=== PATIENT | female | born 1955 | race Caucasian/White ===

== ENCOUNTER 2019-12-25 13:51 | Emergency (ER) | payer MEDICARE ==
[~2019-12-25 13:51] MED LIST: Crotalidae Polyvalent Antivenin 1 GM VIAL ONE
[2019-12-25] MEDS ORDERED: Ondansetron PF 4 MG/2 ML Vial ONE (14:18)
[2019-12-25] MEDS ORDERED: Morphine 4 MG/ML VIAL ONE (14:18)
[2019-12-25 14:50] LABS: #Basophils 0.1 thou/uL (0.0-0.2); #Eosinphils 0.1 thou/uL (0.0-0.7); #Lymphocytes 3.1 thou/uL (1.20-3.40); #Monocytes 0.5 thou/uL (0.11-0.59); %Basophils 1.3 % (0.0-1.0); %Eosinophils 1.2 % (0.0-10.0); %Lymphocytes 39.5 % (21.0-51.0); %Monocytes 6.8 % (0.0-10.0); %Neutrophils 51.3 % (42.0-75.0); Hemoglobin 15.3 g/dL (12.0-16.0); Mean Corpuscular HGB CONC 31.4 g/dL (32.0-36.0); Mean Corpuscular Hemoglobin 27.9 pg (27.0-31.0); Mean Corpuscular Volume 88.9 fL (78.0-98.0); Mean Platelet Volume 9.9 fL (7.4-10.4); Platelet Count 179 thou/uL (130-400); RBC Distribution Width 12.9 % (11.5-14.5); White Blood Cell (WBC) Count 7.7 thou/uL (4.8-10.8)
[2019-12-25] MEDS ORDERED: Adacel (T-DAP) 0.5 ML SYRINGE ONE (14:52)
[2019-12-25 15:27] LABS: PTT 25.9 SEC (22.9-36.1); Prothrombin Time 12.8 SEC (12.0-14.7)
[2019-12-25 16:28] LABS: Bilirubin Negative (Negative); Blood, Urine Negative (Negative); Clarity Slightly Cloudy (Clear); Glucose, Urine (Dipstick) Negative (Negative); Leukocyte Negative (Negative); Nitrite Negative (Negative); Protein, Urine (Dipstick) 30 mg/dL (Neg-Trace); Urobilinogen 0.2 mg/dL (Less than 2)
[2019-12-25 16:34] LABS: Bacteria/HPF 1+ HPF (None Seen); RBC/HPF 0-3 HPF (0-3); WBC/HPF 0-3 HPF (0-3)
== END 2019-12-25 16:15 | disposition short-term general hospital (02) ==
LOC: MADERS 13:51
DX: T63.061A Toxic effect of venom of other North and South American snake, accidental (unintentional), initial encounter (principal); I10 Essential (primary) hypertension; J44.9 Chronic obstructive pulmonary disease, unspecified; K21.9 Gastro-esophageal reflux disease without esophagitis; F17.210 Nicotine dependence, cigarettes, uncomplicated
CPT/HCPCS: 36415; 81003; 81015; 82550; 85025; 85384; 85610; 85730; 86850; 86900; 86901; 90471; 90715; 93005; 96365; 96375; J0840; J2270; J2405; J7050

== ENCOUNTER 2021-03-26 06:43 | Observation (INO) | payer MEDICARE ==
[2021-03-26] MEDS ORDERED: Ketorolac Tromethamine 30 MG/ML VIAL ONE (08:52)
[2021-03-26] MEDS ORDERED: Morphine 4 MG/ML VIAL ONE (11:15)
[2021-03-26 11:43] LABS: SARS-CoV-2 NAA Rapid Test Not Detected (NotDetected)
[2021-03-26] MEDS ORDERED: Ondansetron ODT 4 MG TAB PO PRN (11:47)
[2021-03-26] MEDS ORDERED: Acetaminophen 325 MG TAB PO PRN (11:47)
[2021-03-26 11:50] VITALS: BMI 40.1
[2021-03-26] MEDS ORDERED: HYDROcodone/Acetaminophen 5/325 mg Tablet PO PRN (13:26)
[2021-03-26] MEDS: Oxybutynin 5 MG TAB PO SCH ×2 (15:05→20:39)
[2021-03-26] MEDS: Morphine 4 MG/ML VIAL SLOW IVP PRN ×2 (15:28→20:39)
[2021-03-26] MEDS ORDERED: Cyclobenzaprine 10 MG TAB PO PRN (15:56)
[2021-03-26] MEDS ORDERED: Albuterol Sulfate 1.25 MG/3 ML NEB NEB PRN (16:47)
[2021-03-26] MEDS: Atorvastatin Calcium 10 MG TAB PO SCH (20:36)
[2021-03-26] MEDS: Meloxicam 7.5 MG TAB PO SCH (20:37)
[2021-03-26] MEDS: Metoprolol Tartrate 25 MG TAB PO SCH (20:38)
[2021-03-26] MEDS: Mometasone/Formoterol 200/5 60 PUFF INH SCH (20:38)
[2021-03-26] MEDS: Nicotine 21 MG PATCH TOP SCH (20:39)
[2021-03-27] MEDS: Morphine 4 MG/ML VIAL SLOW IVP PRN (04:58)
[2021-03-27] MEDS: Hydrochlorothiazide 25 MG TAB PO SCH (09:15)
[2021-03-27] MEDS: Oxybutynin 5 MG TAB PO SCH ×3 (09:15→20:33)
[2021-03-27] MEDS: Metoprolol Tartrate 25 MG TAB PO SCH ×2 (09:15→20:35)
[2021-03-27] MEDS: Losartan Potassium 50 MG TAB PO SCH (09:16)
[2021-03-27] MEDS: Mometasone/Formoterol 200/5 60 PUFF INH SCH ×2 (09:16→20:35)
[2021-03-27] MEDS ORDERED: Loratadine 10 MG TAB PO SCH (11:30)
[2021-03-27] MEDS ORDERED: Polyethylene Glycol 3350 17 GM Packet PO SCH (11:30)
[2021-03-27] MEDS ORDERED: Acetaminophen 500 MG TAB PO PRN (12:11)
[2021-03-27] MEDS: HYDROcodone/Acetaminophen 5/325 mg Tablet PO PRN ×2 (15:17→20:36)
[2021-03-27] MEDS: Atorvastatin Calcium 10 MG TAB PO SCH (20:34)
[2021-03-27] MEDS: Senokot S 8.6-50 MG TAB PO SCH (20:34)
[2021-03-27] MEDS: Meloxicam 7.5 MG TAB PO SCH (20:35)
[2021-03-27] MEDS: Nicotine 21 MG PATCH TOP SCH (20:38)
[2021-03-28] MEDS: HYDROcodone/Acetaminophen 5/325 mg Tablet PO PRN ×3 (00:35→12:54)
[2021-03-28] MEDS: Mometasone/Formoterol 200/5 60 PUFF INH SCH (08:20)
[2021-03-28] MEDS: Oxybutynin 5 MG TAB PO SCH ×2 (08:21→14:58)
[2021-03-28] MEDS: Senokot S 8.6-50 MG TAB PO SCH (08:21)
[2021-03-28] MEDS: Losartan Potassium 50 MG TAB PO SCH (08:21)
[2021-03-28] MEDS: Metoprolol Tartrate 25 MG TAB PO SCH (08:21)
[2021-03-28] MEDS: Hydrochlorothiazide 25 MG TAB PO SCH (08:23)
[2021-03-28] MEDS ORDERED: Loratadine 10 MG TAB PO SCH (09:00)
[2021-03-28] MEDS ORDERED: Polyethylene Glycol 3350 17 GM Packet PO SCH (09:00)
[2021-03-28] MEDS ORDERED: Furosemide 20 MG TAB PO SCH (12:15)
[2021-03-28] MEDS ORDERED: HYDROcodone/Acetaminophen 5/325 mg Tablet PO PRN (14:39)
[2021-03-28 16:39] VITALS: BP 170/98; TEMP 98.4
[2021-03-29] MEDS ORDERED: Furosemide 20 MG TAB PO SCH (09:00)
== END 2021-03-28 16:30 | disposition home or self-care (01) ==
LOC: MADERS 06:43 → INTOOBSV 10:26 → MADMS 10:26
PROVIDERS: ADMIT Family Medicine; ATTEND Family Medicine
DX: S22.42XA Multiple fractures of ribs, left side, initial encounter for closed fracture (principal); I51.7 Cardiomegaly; E87.70 Fluid overload, unspecified; J44.9 Chronic obstructive pulmonary disease, unspecified; J31.0 Chronic rhinitis; R53.1 Weakness; E78.2 Mixed hyperlipidemia; I10 Essential (primary) hypertension; M19.90 Unspecified osteoarthritis, unspecified site; K21.9 Gastro-esophageal reflux disease without esophagitis; N32.81 Overactive bladder; F17.210 Nicotine dependence, cigarettes, uncomplicated; E66.9 Obesity, unspecified; Z68.41 Body mass index [BMI] 40.0-44.9, adult; Z20.822 Contact with and (suspected) exposure to COVID-19; Z79.51 Long term (current) use of inhaled steroids; Z79.899 Other long term (current) drug therapy; X58.XXXA Exposure to other specified factors, initial encounter
CPT/HCPCS: 71046; 71250; 96374; 96375; 96376; G0378; J1885; J2270; U0002

== ENCOUNTER 2021-07-27 17:31 | Emergency (ER) | payer MEDICARE ==
[2021-07-27] MEDS ORDERED: Ketorolac Tromethamine 30 MG/ML VIAL ONE (17:49)
[2021-07-27] MEDS ORDERED: HYDROcodone/Acetaminophen 10/325 mg Tablet ONE (20:02)
== END 2021-07-27 20:22 | disposition home or self-care (01) ==
LOC: MADERS 17:31
DX: S22.42XK Multiple fractures of ribs, left side, subsequent encounter for fracture with nonunion (principal); E66.9 Obesity, unspecified; I10 Essential (primary) hypertension; E78.00 Pure hypercholesterolemia, unspecified; M19.90 Unspecified osteoarthritis, unspecified site; J44.9 Chronic obstructive pulmonary disease, unspecified; K21.9 Gastro-esophageal reflux disease without esophagitis; F17.210 Nicotine dependence, cigarettes, uncomplicated; X50.9XXD Other and unspecified overexertion or strenuous movements or postures, subsequent encounter
CPT/HCPCS: 71250; 93005; 96374; J1885

== ENCOUNTER 2022-05-02 11:46 | Outpatient (CLI) | payer MEDICARE ==
[2022-05-02 12:55] LABS: #Basophils 0.1 thou/uL (0.0-0.2); #Eosinphils 0.2 thou/uL (0.0-0.7); #Lymphocytes 3.9 thou/uL (1.20-3.40); #Monocytes 0.6 thou/uL (0.11-0.59); #Neutrophils 5.3 thou/uL (1.40-6.50); %Basophils 0.9 % (0.0-1.0); %Eosinophils 1.9 % (0.0-10.0); %Lymphocytes 38.7 % (21.0-51.0); %Monocytes 6.1 % (0.0-10.0); %Neutrophils 52.4 % (42.0-75.0); Hemoglobin 15.8 g/dL (12.0-16.0); Mean Corpuscular HGB CONC 31.1 g/dL (32.0-36.0); Mean Corpuscular Volume 90.3 fL (78.0-98.0); Mean Platelet Volume 11.7 fL (7.4-10.4); Platelet Count 180 thou/uL (130-400); RBC Distribution Width 13.1 % (11.5-14.5); Red Blood Cell (RBC) Count 5.62 mill/uL (4.20-5.40)
[2022-05-02 12:58] LABS: Bilirubin Negative (Negative); Blood, Urine Trace (Negative); Clarity Slightly Cloudy (Clear); Glucose, Urine (Dipstick) Negative (Negative); Ketone, Urine Negative (Negative); Leukocyte Small (Negative); Nitrite Positive (Negative); Protein, Urine (Dipstick) Negative (Neg-Trace); Urobilinogen 0.2 mg/dL (Less than 2)
[2022-05-02 13:07] LABS: Bacteria/HPF 3+ HPF (None Seen); RBC/HPF 0-3 HPF (0-3); WBC/HPF Greater than 50 HPF (0-3)
[2022-05-02 13:09] LABS: Amphetamine Not Detected (NotDetected); Barbiturates Screen Not Detected (NotDetected); Benzodiazepine Screen Not Detected (NotDetected); Cocaine Metabolite Screen Not Detected (NotDetected); Medtox Control Line Valid? VALID (VALID); Methadone Not Detected (NotDetected); Methamphetamine Not Detected (NotDetected); Opiate Screen Not Detected (NotDetected); Oxycodone Screen Not Detected (NotDetected); Phencyclidine (PCP) Not Detected (NotDetected); THC/Cannabinoid Screen Not Detected (NotDetected); Tricyclic Screen Not Detected (NotDetected)
[2022-05-02 13:50] LABS: ALT (SGPT) 67 U/L (8-55); AST (SGOT) 63 U/L (5-34); Alkaline Phosphatase 72 U/L (40-110); Anion Gap 14 mmol/L (10-20); BUN (Urea Nitrogen) 12 mg/dL (9.8-20.1); Bilirubin, Total 0.5 mg/dL (0.2-1.2); Calc. Creatinine Clearance 0 mL/min (70-130); Calcium 9.5 mg/dL (7.8-10.44); Carbon Dioxide 30 mmol/L (23-31); Cardiac Risk 4.6 (Less than 4.5); Chloride 103 mmol/L (98-107); Cholesterol 183 mg/dl (< 200 Desired); Estimated GFR 79; Globulin 3.4 g/dL (2.4-3.5); Glucose 117 mg/dL (80-115); HDL Cholesterol 40 mg/dL (>60 Neg Risk); LDL Cholesterol, Calculated 113 mg/dL; Potassium 3.1 mmol/L (3.5-5.1); Protein, Total 7.4 g/dL (5.8-8.1); Sodium 144 mmol/L (136-145); Triglycerides 152 mg/dL (Less than 150)
[2022-05-02 16:05] LABS: Hemoglobin A1c 6.2 % (4.0-6.0)
== END 2022-05-02 11:47 | disposition home or self-care (01) ==
LOC: MADLAB 11:46
PROVIDERS: ATTEND Family Medicine
DX: S22.42XA Multiple fractures of ribs, left side, initial encounter for closed fracture (principal); M54.50 Low back pain, unspecified; Z76.89 Persons encountering health services in other specified circumstances; E78.5 Hyperlipidemia, unspecified; I10 Essential (primary) hypertension; R73.01 Impaired fasting glucose; M47.814 Spondylosis without myelopathy or radiculopathy, thoracic region; M47.816 Spondylosis without myelopathy or radiculopathy, lumbar region
CPT/HCPCS: 36415; 72070; 72100; 80053; 80061; 80306; 81001; 82306; 82977; 83036; 84443; 85025